=== PATIENT | female | born 2000 | race Caucasian/White ===

== ENCOUNTER 2022-11-24 22:01 | Outpatient (REF) | payer OTHER, SELFPAY ==
[2022-11-30 16:09] LABS: Age Gdln ACOG Testing Note (.); IGP, rfx Aptima HPV ASCU Note (.)
== END 2022-11-24 22:02 | disposition home or self-care (01) ==
LOC: LAB 22:01
PROVIDERS: PCP Obstetrics & Gynecology; Visit Provider Obstetrics & Gynecology
DX: Z12.4 Encounter for screening for malignant neoplasm of cervix (principal)
CPT/HCPCS: G0145

== ENCOUNTER 2023-02-03 12:29 | Outpatient (OUT) | payer OTHER, SELFPAY ==
[2023-02-03 13:03] LABS: Basophils Absolute Auto 0.1 10^3/uL (0.0-0.1); Basophils Percent Auto 0.7 % (0.2-2.0); Eosinophils Absolute Auto 0.1 10^3/uL (0.0-0.7); Eosinophils Percent Auto 1.6 % (0.9-7.0); Hematocrit 39.6 % (36.0-48.0); Hemoglobin 13.6 g/dL (12.0-16.0); Immature Granulocytes Abs Auto 0.01 10^3/uL (0.00-0.03); Immature Granulocytes Pct Auto 0.1 % (0.0-0.5); Lymphocytes Absolute Auto 3.1 10^3/uL (1.2-3.8); Lymphocytes Percent Auto 46.9 % (20.5-60.0); Mean Corpuscular HGB Conc 34.3 g/dL (29.9-35.2); Mean Corpuscular Hemoglobin 30.4 pg (26.7-34.0); Mean Corpuscular Volume 88.6 fL (81.0-99.0); Mean Platelet Volume 11.2 fL (9.5-13.5); Monocytes Absolute Auto 0.9 10^3/uL (0.3-0.8); Monocytes Percent Auto 13.3 % (1.7-12.0); Neutrophils Absolute Auto 2.5 10^3/uL (1.4-6.5); Neutrophils Percent Auto 37.4 % (43.0-75.0); Platelet Count 226 10^3/uL (150-450); Red Blood Count 4.47 10^6/uL (4.20-5.40); Red Cell Distribution Width 11.4 % (11.0-15.0); White Blood Count 6.7 10^3/uL (4.0-11.0)
[2023-02-03 13:51] LABS: Free T4 0.95 ng/dL (0.76-1.46)
[2023-02-03 13:53] LABS: Thyroid Stimulating Hormone 1.811 uIU/mL (0.358-3.740)
[2023-02-04 08:10] LABS: HBsAg Screen Negative (Negative); HCV Antibody Non Reactive (Non Reactive)
[2023-02-04 11:10] LABS: Rapid Plasma Reagin, Quant Non Reactive (NonRea<1:1)
== END 2023-02-03 12:30 | disposition home or self-care (01) ==
LOC: LAB 12:31
PROVIDERS: PCP Obstetrics & Gynecology; Visit Provider Obstetrics & Gynecology
DX: E34.9 Endocrine disorder, unspecified (principal); Z20.2 Contact with and (suspected) exposure to infections with a predominantly sexual mode of transmission
CPT/HCPCS: 36415; 82728; 84439; 84443; 85025; 86592; 86706; 86803

== ENCOUNTER 2024-07-24 12:31 | Outpatient (OUT) | payer BC, SELFPAY ==
[2024-07-25 05:09] LABS: HIV Ab/p24 Ag Screen Non Reactive (Non Reactive)
[2024-07-25 06:10] LABS: HBsAg Screen Negative (Negative)
[2024-07-25 10:07] LABS: Rapid Plasma Reagin, Quant Non Reactive titer (NonRea<1:1)
[2024-07-29 00:07] LABS: HSV-1 DNA Negative (Negative); HSV-2 DNA Positive (Negative)
== END 2024-07-24 12:32 | disposition home or self-care (01) ==
LOC: LAB 12:34
PROVIDERS: PCP Family Medicine; Visit Provider Obstetrics & Gynecology
DX: Z20.2 Contact with and (suspected) exposure to infections with a predominantly sexual mode of transmission (principal)
CPT/HCPCS: 36415; 86592; 87340; 87389

== ENCOUNTER 2024-07-26 09:59 | Outpatient (OUT) | payer BC, SELFPAY ==
--- NOTE | 2024-07-26 10:03 | US_ITS ---
[address] [address] Patient Name: BALATZAR HUTCHINSON MRN: [id number] date: 2000 Sex: F Assigned Patient Location: US Current Patient Location: US Accession/Order Number: [id number] Exam Date: 07/26/2024 10:05 Report Date: 07/26/2024 14:02 At the request of: LOAN CARMONA Procedure: US pelvis transvaginal EXAMINATION: US pelvis transvaginal HISTORY: Cervicitis and Endocervicitis COMPARISON: No relevant comparison available. TECHNIQUE: Transabdominal and/or transvaginal sonographic examination was performed as indicated by examination type. FINDINGS: UTERUS: Normal size and appearance. Uterus size: 7.9 x 5.9 x 4.8 cm ENDOMETRIUM: Normal homogeneous appearance. Endometrial thickness: 7 mm RIGHT OVARY: Contains a 1.9 cm complex cyst without hypervascularity; likely a collapsing follicle. Duplex Doppler demonstrates normal waveform and flow; resistive index 0.5. Ovary size: 3.9 x 2.8 x 3.2 cm LEFT OVARY: Contains multiple small peripherally located follicles; nonspecific but can be seen with polycystic ovarian syndrome. Duplex Doppler demonstrates normal waveform and flow; resistive index 0.6. Ovary size: 3.6 x 1.8 x 1.6 cm CUL-DE-SAC: Trace amount of free fluid. BLADDER: Unremarkable. OTHER: None. US/US pelvis transvaginal IMPRESSION: 1. Complex cyst within right ovary most suggestive of a collapsing follicle. 2. No appreciable acute findings of the uterus or ovaries. No findings to suggest tubo-ovarian abscess. Electronically authenticated by: JIMMY BRYAN Date: 07/26/2024 14:02
--- OUTSIDE RECORDS SUMMARY | 2024-07-26 10:03 | XMS_ITS | CCD ---
Author Organization [facility] Care Team Providers Care Cane Flume Watchman Name Role Phone Rima Wharton Unavailable Selene Escalante Unavailable JESSE Escalante Attending Provider [phone] Selene Escalante Attending Unavailable Selene Escalante Admitting Unavailable OLIVIER ., DR CATES Attending Unavailable OLIVIER ., DR CATES Admitting Unavailable MISC, DR COSTELLO Primary Care Unavailable OLIVIER ., DR CATES Admitting Unavailable OLIVIER ., DR CATES Attending Unavailable OLIVIER ., DR CATES Consulting Unavailable MISC, DR COSTELLO Primary Care Unavailable NICK II, BOOM Consulting Unavailable KOISAAC COVINGTON Consulting Unavailable OLIVIER ., DR CATES Attending Unavailable OLIVIER ., DR CATES Consulting Unavailable OLIVIER ., DR CATES Admitting Unavailable MISC, DR COSTELLO Primary Care Unavailable Harini CHAUDHRY, Patrick Layton Primary Care Provider Medications Current Medications Medication Drug Class(es) Dates Sig (Normalized) Sig (Original) amoxicillin 875 mg / clavulanate 125 mg oral tablet (1 source) Penicillin-class Antibacterial Start: 4 take 1 tablet by mouth twice daily Amoxicillin-Pot Clavulanate Active 1 TAB PO Twice daily 20 September 28, 2023 12:00am azithromycin 500 mg oral tablet (2 sources) Macrolide Antimicrobial Start: 5 End: 5 take 2 tablets by mouth once azithromycin (Zithromax) 500 MG tablet Indications: Vaginal discharge , STD exposure Take 2 tablets (1,000 mg) by mouth 1 time for 1 dose 2 tablet 07/24/2024 07/24/2024 Active Citalopram (3 sources) Serotonin Reuptake Inhibitor CeleXA Active doxycycline hyclate 100 mg oral capsule (4 sources) Tetracycline-class Drug Start: 5 End: 5 doxycycline (Vibramycin) 100 MG capsule Indications: Cervicitis and endocervicitis Take 1 capsule (100 mg) by mouth in the morning and 1 capsule (100 mg) before bedtime. Do all this for 14 days. Take with at least 8 ounces (large glass) of water, do not lie down for 30 minutes after. 28 capsule 07/24/2024 08/07/2024 Active methylPREDNISolone 4 mg oral tablet (3 sources) Corticosteroid Start: 2 Medrol 4 MG as directed Orally as directed for 6 days Mar, Active nitrofurantoin, macrocrystals 25 mg / nitrofurantoin, monohydrate 75 mg oral capsule (3 sources) Nitrofuran Antibacterial Start: 2 take 1 capsule by mouth every twelve hours Macrobid 100 MG 1 cap(s) Orally 2 times a day for 5 day(s) Mar, Active Completed/Discontinued Medications Medication Drug Class(es) Dates Sig (Normalized) Sig (Original) Triamcinolone (3 sources) Corticosteroid Start: 11-08-2017 KENALOG - 10 m g October, 80 mg Problems Active Problems Problem Classification Problem Date Documented Date Episodic/Chronic Abdominal pain (1 source) Pelvic and perineal pain; Translations: [PELVIC AND PERINEAL PAIN] Onset: 08-10-2022 Episodic Contraceptive and procreative management (5 sources) Encounter for sterilization; Translations: [ENCOUNTER FOR STERILIZATION] Onset: 07-28-2022 Episodic Genitourinary symptoms and ill-defined conditions (7 sources) Dysuria; Translations: [Dysuria] Onset: 03-15-2022 Episodic Immunizations and screening for infectious disease (12 sources) Contact with and (suspected) exposure to other viral communicable diseases; Translations: [Encounter for screening for human papillomavirus (HPV)] Onset: 06-07-2021 Resolved: 06-07-2021 Episodic Inflammatory diseases of female pelvic organs (2 sources) Cervicitis and endocervicitis; Translations: [Inflammatory disease of cervix uteri] 07-24-2024 Episodic Other female genital disorders (2 sources) Pain in female genitalia on intercourse; Translations: [Unspecified dyspareunia] 07-24-2024 Chronic Other female genital disorders (2 sources) Vaginal discharge; Translations: [Other specified noninflammatory disorders of vagina] 07-24-2024 Episodic Other upper respiratory disease (4 sources) Seasonal allergy; Translations: [Other seasonal allergic rhinitis] Chronic Ovarian cyst (1 source) Unspecified ovarian cyst, right side; Translations: [UNSPECIFIED OVARIAN CYST RIGHT SIDE] Onset: 08-10-2022 Episodic Spondylosis; intervertebral disc disorders; other back problems (2 sources) Neck pain; Translations: [Cervicalgia] 07-24-2024 Episodic Urinary tract infections (3 sources) Urinary tract infection, site not specified Episodic Past or Other Problems Problem Classification Problem Date Documented Da te Episodic/Chronic Other screening for suspected conditions (not mental disorders or infectious disease) (4 sources) Encounter for screening for malignant neoplasm of cervix; Translations: [ENC SCREENING MALIG NEOPLASM CERV] Onset: 04-21-2022 Episodic Viral infection (3 sources) COVID-19 Results Test Name Value Interpretation Reference Range Facility HIV AB/P24 AG WITH REFLEXon 07-25-2024 HIV AB/P24 AG SCREEN Non-Reactive Non Reactive [facility] Comment on above: HIV-1/HIV-2 antibodi es and HIV-1 p24 antigen were NOT detected. There is no laboratory evidence of HIV infection. HIV Negative Performed at: [facility] [address] [id number] [employer] Worker: Luke Quinn PhD, Phone: [phone] [facility] e RECURRENT VAGINITIS (HTRX)on 07-25-2024 HERPES SIMPLEX VIRUS 1 0 [facility] HERPES SIMPLEX VIRUS 1 Not detected [facility] HERPES SIMPLEX VIRUS 2 21.299 Abnormal [facility] HERPES SIMPLEX VIRUS 2 Detected Abnormal [facility] Interpretation and review of laboratory results Abnormal [facility] Healthca re [facility] CBC AUTO DIFFon 07-29-2022 BASO # 0.0 103/ul Normal 0.0-0.1 [facility] Comment on above: Performed By: #### C BC #### [facility] [address] [address] [address] Nathalie Hartman Basophils/100 WBC (Bld) 0.5 % Normal 0.2-2.0 [facility] Comment on above: Performed By: #### C BC #### [facility] [address] [place] [address] Dr. Nathalie Hartman EO # 0.2 103/ul Normal 0.0-0.7 [facility] Comment on above: Performed By: #### C BC #### [facility] [address] [place] [address] Dr. Nathalie Hartman Eosinophils/100 WBC (Bld) 1.9 % Normal 0.9-7.0 [facility] Comment on above: Performed By: #### C BC #### [facility] [address] [place] [address] Dr. Nathalie Hartman Erythrocyte distribution width (RBC) [Ratio] 11.8 % Normal 11.0-15.0 [facility] Comment on above: Performed By: #### C BC #### [facility] [address] [place] [address] Dr. Nathalie Hartman Hematocrit (Bld) [Volume fraction] 40.1 % Normal 36.0-48.0 [facility] Comment on above: Performed By: #### C BC #### [facility] [address] [place] [address] Dr. Nathalie Hartman Hemoglobin (Bld) [Mass/Vol] 13.3 g/dL Normal 12.0-16.0 [facility] Comment on above: Performed By: #### C BC #### [facility] [address] [place] [address] Dr. Nathalie Hartman IG # 0.03 10e3/ul Normal 0.00-0.03 [facility] Comment on above: Performed By: #### C BC #### [facility] [address] [place] [address] Dr. Nathalie Hartman IG % 0.3 % Normal 0.0-0.5 [facility] Comment on above: Performed By: #### C BC #### [facility] [address] [place] [address] Dr. Nathalie Hartman LYMPH # 2.5 103/ul Normal 1.2-3.8 [facility] Comment on above: Performed By: #### C BC #### [facility] [address] [place] [address] Dr. Nathalie Hartman Lymphocytes/100 WBC (Bld) 29.2 % Normal 20.5-60.0 [facility] Comment on above: Performed By: #### C BC #### [facility] [address] [place] [address] Dr. Nathalie Hartman MANUAL DIFF REQ NO Normal [facility] Comment on above: Performed By: #### C BC #### [facility] [address] [place] [address] Dr. Nathalie Hartman MCH (RBC) [Entitic mass] 29.3 pg Normal 26.7-34.0 [facility] Comment on above: Performed By: #### C BC #### [facility] [address] [place] [address] Dr. Nathalie Hartman MCHC (RBC) [Mass/Vol] 33.2 g/dL Normal 29.9-35.2 [facility] Comment on above: Performed By: #### C BC #### [facility] [address] [place] [address] Dr. Nathalie Hartman MCV (RBC) [Entitic vol] 88.3 fL Normal 81.0-99.0 [facility] Comment on above: Performed By: #### C BC #### [facility] [address] [place] [address] Dr. Nathalie Hartman MONO # 0.6 103/ul Normal 0.3-0.8 [facility] Comment on above: Performed By: #### C BC #### [facility] [address] [place] [address] Dr. Nathalie Hartman Monocytes/100 WBC (Bld) 7.4 % Normal 1.7-12.0 [facility] Comment on above: Performed By: #### C BC #### [facility] [address] [place] [address] Dr. Nathalie Hartman NEUT # 5.2 103/ul Normal 1.4-6.5 [facility] Comment on above: Performed By: #### C BC #### [facility] [address] [place] [address] Dr. Nathalie Hartman Neutrophils/100 WBC (Bld) 60.7 % Normal 43.0-75.0 [facility] Comment on above: Performed By: #### C BC #### [facility] [address] [place] [address] Dr. Nathalie Hartman Platelet mean volume (Bld) [Entitic vol] 10.9 fL Normal 9.5-13.5 [facility] Comment on above: Performed By: #### C BC #### [facility] [address] [place] [address] Dr. Nathalie Hartman PLT 203 103/ul Normal 150-450 [facility] Comment on above: Performed By: #### C BC #### [facility] [address] [place] [address] Dr. Nathalie Hartman RBC 4.54 106/ul Normal 4.20-5.40 [facility] Comment on above: Performed By: #### C BC #### [facility] [address] [place] [address] Dr. Nathaile Hartman WBC 8.6 103/ul Normal 4.0-11.0 [facility] Comment on above: Performed By: #### C BC #### [facility] [address] [place] [address] Dr. Nathalie Hartman PREG QUANT HCGon 07-29-2022 HCG QUANT <1 Normal [facility] Comment on above: Performed By: #### P REGQNT #### [facility] [address] [place] [address] Dr. Nathalie Hartman HCG RANGE SEE BELOW Normal [facility] Comment on above: Result Comment: 5-50 0.2-1 WEEK 50-500 1-2 WEEKS 100-5,000 2-3 WEEKS 500-10,000 3-4 WEEKS 1,000-50,000 4-5 WEEKS 10,000-100,000 5-6 WEEKS 15,000-200,000 6-8 WEEKS 10,000-100,000 2-3 MONTHS Performed By: #### P REGQNT #### [facility] [address] [place] [address] Dr. Nathalie Hartman PAP ACOG PANEL 2: 21 to 29on 05-03-2022 . . Normal [facility] Comment on above: Performed By: #### [id number] #### [facility] [address] [place] [address] Dr. Nathalie Hartman Age Gdln ACOG Testing 21-29 Normal [facility] Comment on above: Performed By: #### [id number] #### [facility] [address] [place] [address] Dr. Nathalie Hartman DIAGNOSIS: Comment Abnormal [facility] Comment on above: Result Comment: EPIT HELIAL CELL ABNORMALITY. ATYPICAL SQUAMOUS CELLS OF UNDETERMINED SIGNIFICANCE (ASC-US). Performed By: #### [id number] #### [facility] [address] [place] [address] Dr. Nathalie Hartman Electronically signed by: Comment Normal [facility] Comment on above: Result Comment: Damion Justice MD, Pathologist Performed By: #### [id number] #### [facility] [address] [place] [address] Dr. Nathalie Hartman HPV Aptima Positive Abnormal Negative [facility] Comment on above: Result Comment: This nucleic acid amplification test detects fourteen high-risk HPV types (16,18,31,33,35,39,45,51,52,56,58,59,66,68) without differentiation. Performed By: #### 4 [id number] #### [facility] [address] [place] [address] Dr. Nathalie Hartman Methodology: Comment Normal [facility] Comment on above: Result Comment: This liquid based ThinPrep(R) pap test was screened with the use of an image guided system. Performed By: #### [id number] #### [facility] [address] [place] [address] Dr. Nathalie Hartman Note: Comment Normal [facility] Comment on above: Result Comment: The Pap smear is a screening test designed to aid in the detection of premalignant and malignant conditions of the uterine cervix. It is not a diagnostic procedure and should not be used as the sole means of detecting cervical cancer. Both false-positive and false-negative reports do occur. . Performed By: #### [id number] #### [facility] [address] [address] [address] Nathalie Hartman Pathologist Provided ICD10 Comment Normal [facility] Comment on above: Result Comment: [id number] Performed By: #### [id number] #### [facility] [address] [address] [address] Nathalie Hartman Performed by: Comment Normal [facility] Comment on above: Result Comment: Dinorah Carrera, [employer] Research Technician Performed By: #### [id number] #### [facility] [address] [address] [address] Nathalie Hartman Reflex Criteria: Comment Normal [facility] Comment on above: Result Comment: See below for HPV testing results. . Performed By: #### [id number] #### [facility] [address] [address] [address] Nathalie Hartman Specimen adequacy: Comment Normal [facility] Comment on above: Result Comment: Sati sfactory for evaluation. Endocervical and/or squamous metaplastic cells (endocervical component) are present. Performed By: #### [id number] #### [facility] [address] [address] [address] Nathalie Hartman COVID Quick Testingon 2021 Result Positive [facility] Other Urinalysis - AUTOMATEDon Appearance (U) cloudy Make YES! Happen Other Bilirubin Ql (U) Negative [employer] Other Color (U) dark yellow [facility] Other Glucose Ql (U) Negative Make YES! Happen Other Hemoglobin Ql (U) Negative Xochitl (So-Shee) [employer] Other Ketones Ql (U) Negative Make YES! Happen Other Leukocyte esterase Test strip Ql (U) small [facility] Other Nitrite Ql (U) Negative Make YES! Happen Other pH (U) 6.0 [pH] [facility] Other Protein Ql (U) 100 Make YES! Happen Other Specific gravity (U) [Rel density] 1.010 [facility] Other Urobilinogen (U) [Mass/Vol] 0.2 mg/dL [facility] Other Urinalysis - AUTOMATED [facility] Other Urine Cultureon 03-15-2022 Bacteria identified Cx Nom (U) Reason for Exam Dysuria Urine No Growth 2 Days PERFORMED BY: [place] [address] PATHOLOGIST PILL MAKER SAFIA [place]ORADO M.D. [facility] Comment on above: Performed By: #### C UU #### [facility] [address] [place] [address] Bacteria identified Cx Nom (U) [facility] Other COVID Quick Testingon 2020 Result Negative [facility] Other Vital Signs Date Time Vital Sign Value Performing Clinician Facility 07-24-2024 11:29-0500 Body mass index (BMI) [Ratio] 21.04 kg/m2 Loan Olivier DO Work Phone: [facility] 07-24-2024 11:29-0500 Body weight 58.24 kg Loan Olivier DO Work Phone: [facility] 07-24-2024 11:29-0500 Diastolic blood pressure 50 mm[Hg] Loan Olivier DO Work Phone: [facility] 07-24-2024 11:29-0500 Systolic blood pressure 92 mm[Hg] Loan Olivier DO Work Phone: [facility] 09-28-2023 16:51-0400 Body height 166.37 cm [facility] 09-28-2023 16:51-0400 Body mass index (BMI) [Ratio] 22.1 kg/m2 [facility] 09-28-2023 16:51-0400 Body temperature 98.3 [degF] [facility] 09-28-2023 16:51-0400 Body weight 61.23 kg [facility] 09-28-2023 16:51-0400 Heart rate 76 /min [facility] 09-28-2023 16:51-0400 Respiratory rate 16 /min [facility] 09-28-2023 16:51-0400 SaO2% (BldA) [Mass fraction] 99 % [facility] 03-15-2022 13:15-0400 Body height 165.1 cm Selene Rochamond Other [facility] [employer] Other 03-15-2022 13:15-0400 Body mass index (BMI) [Ratio] 22.8 kg/m2 Selene Rochamond Other [facility] Other 03-15-2022 13:15-0400 Body temperature 98 [degF] Selene Rochamond Other [facility] Other 03-15-2022 13:15-0400 Body weight 62.14 kg Selene Ava Other [facility] Other 03-15-2022 13:15-0400 Diastolic blood pressure 59 mm[Hg] Selene Rochamond Other [facility] Other 03-15-2022 13:15-0400 Respiratory rate 18 /min Selene Rochamond Other [facility] Other 03-15-2022 13:15-0400 SaO2% (BldA) [Mass fraction] 98 % Selene Ava Other [facility] Other 03-15-2022 13:15-0400 Systolic blood pressure 129 mm[Hg] Selene Escalante Other [facility] Other 06-07-2021 12:30-0500 Body height 165.1 cm Rima Wharton Other [facility] Other 06-07-2021 12:30-0500 SaO2% (BldA) [Mass fraction] 97 % Rima Wharton Other [facility] Other Encounters Encounter Date Encounter Type Care Provider Facility Start: 07-24-2024 End: 07-24-2024 Bamboo flowsheet Loan Olivier DO Work Phone: [facility] Start: 07-24-2024 End: 07-25-2024 Bamboo flowsheet Loan Olivier DO Work Phone: [facility] Start: 07-24-2024 End: 07-25-2024 [facility] Result Encounter Loan Olivier DO Work Phone: [facility] External Department Unsolicited Start: 07-24-2024 End: 07-25-2024 External Result Encounter Loan Olivier DO Work Phone: [facility] External Department Unsolicited Start: 07-24-2024 End: 07-24-2024 Office outpatient visit 15 minutes Loan Olivier DO Work Phone: [facility] Comment on above: Cervicitis and endoc ervicitis; Cervical pain; Dyspareunia in female; Vaginal discharge; STD exposure; Sexually transmitted disease exposure Start: 09-28-2023 End: 09-28-2023 ambulatory [facility] Work Phone: Start: 09-28-2023 End: 09-28-2023 Patient encounter procedure [facility] Work Phone: Start: 07-29-2022 End: 07-29-[address] LONA AGUAYO . Facility:[facility] Start: 07-28-2022 Encounter for other preprocedural examination DR LOAN AGUAYO . [facility] Start: 07-22-2022 End: 07-23-[address] LOAN AGUAYO . Facility:[facility] Start: 07-22-2022 End: 07-23-2022 Encounter for other preprocedural examination DR LOAN AGUAYO . Facility:[facility] Start: 04-21-2022 End: 04-21-[address] LOAN AGUAYO . Facility:[facility] Start: 03-15-2022 Office outpatient vi sit 25 minutes Selene Escalante [facility] Start: 03-15-2022 End: 03-15-2022 ambulatory Selene Escalante [facility] Other Start: 03-15-2022 End: 03-15-2022 Departed [employer] Selene Escalante Work Phone: [facility] [place] Start: 06-07-2021 End: 06-07-2021 ambulatory Rima Ginty Other [facility] Other Start: 06-07-2021 Office outpatient vi sit 15 minutes Rima Ginty [facility] Procedures Date Procedure Procedure Detail Performing Clinician Start: 07-24-2024 RECURRENT VAGINITIS (HTRX) Loan Aguayo DO Work Phone: Start: 07-24-2024 HIV AB/P24 AG WITH REFLEX Generic External Data Provider Plan of Treatment Date Care Activity Detail Author Start: 09-03-2024 End: 09-03-2024 Patient encounter procedure 09/03/2024 11:00 AM EDT Office Visit [facility] [address] [place] [id number] Keira Murphy PA [address] [place] [address] [facility] Start: 08-07-2024 End: 08-07-2024 Patient encounter procedure 08/07/2024 8:00 AM EST Office Visit [facility] [address] [facility] [id number] Loan Aguayo, DO [address] [place] [address] [facility] Start: 07-24-2024 End: 07-24-2025 US Pelvis US Pelvis w/ TV Imaging Routine Cervicitis and endocervicitis Cervical pain Dyspareunia in female Vaginal discharge STD exposure Expected: 07/24/2024, Expires: 07/24/2025 [facility] Comment on above: Expected: 07/24/2024 , Expires: 07/24/2025 Start: 07-24-2024 End: 07-24-2024 Patient encounter procedure 07/24/2024 11:20 AM EST Office Visit [facility] [address] [facility] [id number] Loan Aguayo, DO [address] [place] [address] [place] [address] Arrived [facility] Comment on above: Arrived Start: 02-11-2024 Influenza vaccination Influenza Vacc ine (#1) [facility] Bacteria identified in Urine by Culture [facility] CHLAMYDIA TRACHOMATI S (GENITO/STI) CHLAMYDIA TRACHOMATIS (GENITO/STI) Lab Routine Cervicitis and endocervicitis Cervical pain Vaginal discharge STD exposure Ordered: 07/24/2024 [facility] Comment on above: Ordered: 07/24/2024 Hepatitis B virus surface Ag [Presence] in Serum or Plasma by Immunoassay Hepatitis B surface antigen Lab Routine Sexually transmitted disease exposure Ordered: 07/24/2024 [facility] Comment on above: Ordered: 07/24/2024 HIV-1/HIV-2 antigen/antibody combination immunoassay HIV-1 and HIV-2 antibodies Lab Routine Sexually transmitted disease exposure Ordered: 07/24/2024 [facility] Comment on above: Ordered: 07/24/2024 HSV nonspecific, IgG HSV nonspec ific, IgG Lab Routine STD exposure Ordered: 07/24/2024 [facility] Comment on above: Ordered: 07/24/2024 HSV nonspecific, IgM HSV nonspec ific, IgM Lab Routine STD exposure Ordered: 07/24/2024 [facility] Comment on above: Ordered: 07/24/2024 HSV viral culture HSV viral cult ure Microbiology Routine STD exposure Sexually transmitted disease exposure Ordered: 07/24/2024 [facility] Comment on above: Ordered: 07/24/2024 Neisseria gonorrhoea e DNA [Presence] in Unspecified specimen by JUSTIN with probe detection Neisseria gonorrhea DNA probe, direct Lab Routine Cervicitis and endocervicitis Cervical pain Vaginal discharge STD exposure Ordered: 07/24/2024 [facility] Comment on above: Ordered: 07/24/2024 Reagin Ab [Presence] in Serum by [facility] Lab Routine Sexually transmitted disease exposure Ordered: 07/24/2024 [facility] Comment on above: Ordered: 07/24/2024 SURESWAB(R) ADVANCED VAGINITIS PLUS, TMA SURESWAB(R) ADVANCED VAGINITIS PLUS, TMA Pathology and Cytology Routine Cervicitis and endocervicitis Cervical pain Vaginal discharge STD exposure Ordered: 07/24/2024 [facility] Work Phone: Comment on above: Ordered: 07/24/2024 Payers Date Payer Category Payer [facility] er [id number] 2022 Self-pay [id number] 2000 Unknown [id number] 2000 Unknown [id number] 2000 Unknown [id number] 1959 Unknown [id number] Private Health Insurance [employer] [id number] Unknown Francisco J ALBERTO/LEILA [id number] Unknown [id number] Social History Date Type Detail Facility Unknown if ever smoked [facility] [employer] Other Start: 12-28-2022 Sex Assigned At N [facility] [employer] Other Start: 2000 Sex Assigned At Female F [facility] Start: 09-28-2023 Tobacco smoking stat [facility] Unknown if ever smoked [facility] Start: 11-23-2022 Tobacco smoking stat [facility] Never smoked tobacco [facility] Start: 11-23-2022 Tobacco use and exposure Smokeless tobacco non-user [facility] Start: 12-29-2022 Alcoholic beverage intake Lifetime non-drinker (finding) [facility] Start: 12-28-2022 History of Social function [facility] Start: 11-17-2022 Gender identity Identifies as female gender (finding) [facility] History of Present illness Narrative 07-24-2024 Catina Mireles LPN - 07/24/2024 11:20 AM EST Note Date & Type Note Facility 07-24-2024 History of Presen t illness Narrative Reason for Appointment: Patient ID: Jaziel Hutchinson is a 24 y.o. female who presents for Cervical Irritation Patient presents today for Acute Visit. and STD Check. MEDICATIONS Current Outpatient Medications Medication Instructions doxycycline (VIBRAMYCIN) 100 mg, Oral, 2 times daily, Take with at least 8 ounces (large glass) of water, do not lie down for 30 minutes after ALLERGIES No Known Allergies PROBLEMS Active Ambulatory Problems Diagnosis Date Noted No Active Ambulatory Problems Resolved Ambulatory Problems Diagnosis Date Noted No Resolved Ambulatory Problems Past Medical History: Diagnosis Date ASCUS of cervix with negative high risk HPV 04/20/2022 History of diagnostic ultrasound 03/29/2019 Mood changes Normal colposcopy 05/26/2022 Seasonal allergies Vaginal delivery HISTORY PAST MEDICAL HISTORY SOCIAL HISTORY Past Medical History: Diagnosis Date ASCUS of cervix with negative high risk HPV 04/20/2022 History of diagnostic ultrasound 03/29/2019 Pelvic U/S negative Mood changes Normal colposcopy 05/26/2022 due to ascus hpv + Seasonal allergies Vaginal delivery Social History Tobacco Use Smoking status: Never Smokeless tobacco: Never Substance Use Topics Alcohol use: Never Drug use: Never FAMILY HISTORY Family History Problem Relation Name Age of Onset Cancer Paternal Grandmother Melanoma Neg Hx SURGICAL HISTORY Past Surgical History: Procedure Laterality Date OTHER SURGICAL HISTORY 07/29/2022 robotic salpingectomy w/right cystoectomy REVIEW OF SYSTEMS Review of Systems: Review of Systems Constitutional: Negative. HENT: Negative. Eyes: Negative. Respiratory: Negative. Cardiovascular: Negative. Gastrointestinal: Negative. Genitourinary: Positive for dyspareunia, genital sores and vaginal discharge. Musculoskeletal: Negative. Skin: Negative. Neurological: Negative. All other systems reviewed and are negative. Hematological: Negative. Endocrine: Negative. Allergic/Immunologic: Negative. OBJECTIVE Objective: Physical Exam Constitutional: Appearance: Normal appearance. She is well-developed. Genitourinary: Vulva normal. Cardiovascular: Rate and Rhythm: Normal rate and regular rhythm. Pulmonary: Effort: Pulmonary effort is normal. Breath sounds: Normal breath sounds. Abdominal: General: Bowel sounds are normal. There is no distension. Palpations: Abdomen is soft. Tenderness: There is no abdominal tenderness. There is no guarding or rebound. Musculoskeletal: General: No swelling. Normal range of motion. Right lower leg: No edema. Left lower leg: No edema. Neurological: Mental Status: She is alert and oriented to person, place, and time. Skin: General: Skin is warm and dry. Psychiatric: Mood and Affect: Mood normal. Behavior: Behavior normal. Vitals and nursing note reviewed. Exam conducted with a fiber glass worker present. Vitals: Estimated body mass index is 21.04 kg/m as calculated from the following: Height as of 12/29/22: 5' 5.5 . Weight as of this encounter: 128 lb 6.4 oz. BP: 92/50 Patient's last menstrual period was 06/27/2024 (exact date). ASSESSMENT & PLAN ICD-10-CM 1. Cervicitis and endocervicitis N72 doxycycline (Vibramycin) 100 MG capsule 2. Cervical pain M54.2 3. Dyspareunia in female N94.10 4. Vaginal discharge N89.8 5. STD exposure Z20.2 Pt presents with cervical pain, vaginal discharge, painful intercourse, and cervicitis. Pelvic exam performed, vaginal discharge noted. Ordered ultrasound for pt d/t painful intercourse and cervical pain. Rx for doxy and azithromycin faxed to pharmacy. Pt has small ulcerative spot on labia cultured for HSV- given std plus hsv lab work to have obtained. Pt voiced understanding. Discussed mycoplasma regimen for future, also discussed scope for future if pain persists. Pt voiced understanding. Pt to have telehealth in 2 weeks. Documented by Catina Mireles LPN on behalf of: Loan Aguayo DO documented in this encounter [facility] Clinical Note 07-29-2022 Note Date & Type Note Facility 07-29-2022 Note OPERATIVE NOTE OPERATION DATE: 07/29/2022 PROCEDURE: Robotic assisted laparoscopic bilateral salpingectomy with right ovarian cystectomy. PREOPERATIVE DIAGNOSIS: Desires permanent sterilization, pelvic pain. POSTOPERATIVE DIAGNOSIS: Desires permanent sterilization, pelvic pain. ANESTHESIA: General. SURGEON: Loan Aguayo D.O. ADAPTIVE PHYSICAL EDUCATION SPECIALIST: SHAYY Love URINE OUTPUT: Yellow and clear. BLOOD LOSS: 5 mL. FINDINGS: Normal appearing uterus and tubes, along with normal appearing left ovary, right ovarian cyst approximately 4-5 cm in size. SPECIMEN: Bilateral tubes, right ovarian cyst wall. PROCEDURE: The patient was taken back to the OR where she was prepped and draped in the normal sterile fashion after being placed in the dorsal lithotomy position, after being placed under general anesthesia without difficulty. A wet sponge stick was placed into the patient's vagina. Attention was then turned to the patient's abdomen, where a scalpel was used to make a small infraumbilical incision. The S retractors were then used to dissect the underlying layers until the fascia could be seen. The fascia was then grasped with Cosme clamps and tented up. A knife was then used to make a small incision to the fascia. The muscle was identified, at that time two sutures of #0 Vicryl on a GI needle was then used and placed through the fascia. The peritoneum was then identified and entered bluntly. The 10-4 Iain was then placed into the patient's abdomen. This was confirmed with direct visualization of the bowel, using the laparoscope. The patient's abdomen was then insufflated using approximately 4 liters of CO2 gas. Survey of the patient's abdomen demonstrated normal appearing ovaries, uterus and tubes. A second and third lateral port, which was 7-8 in size and 5 mm in size, was then placed laterally after incision was made in the skin under direct visualization. The patient's tube on the patient's right side was identified. The tube was then tented up using a grasper. The LigaSure was used to transect and coagulate the mesosalpinx from the fimbriated end to the insertion at the uterus; the tube was amputated and removed in its entirety. Excellent hemostasis was noted. This was performed on the contralateral side as well. The lateral ports were then removed under direct visualization with excellent hemostasis. The abdomen was desufflated. All instruments were removed from the patient's abdomen. The fascia was closed using the #0 Vicryl on GI needle. The skin was closed using 4-0 Vicryl subcuticularly. All instruments were removed from the patient's vagina as well. The patient was taken out of the dorsal lithotomy position and placed in the supine position and taken to recovery in stable condition. Sponge, lap and needle counts were correct x2 [facility] Evaluation note 03-15-2022 Note Date & Type Note Facility 03-15-2022 Evaluation note Encounter Date Diagnosis Assessment Notes Mar, Contact with and (suspected) exposure to other viral communicable diseases (ICD-10 - Z20.828) Mar, COVID-19 (ICD-10 - U07.1) Discharge Instructions for COVID-19 (Suspected or Confirmed ) material was printed Drink plenty fluids, get plenty of rest. Take the Macrobid and Medrol Dosepak as prescribed until gone. Follow-up with your family physician if no improvement in 2 to 3 days. You must quarantine for 5 days after the onset of your symptoms of COVID. Take Tylenol as needed for pain. Mar, Dysuria (ICD-10 - R30.0) Mar, Urinary tract infection without hematuria, site unspecified (ICD-10 - N39.0) [employer] Other Evaluation note 06-07-2021 Note Date & Type Note Facility 06-07-2021 Evaluation note Encounter Date Diagnosis Assessment Notes May, Contact with and (suspected) exposure to other viral communicable diseases (ICD-10 - Z20.828) Advised patient that COVID antigen rapid test today in office was negative. Due to close contact with COVID+ person, I am highly suspicious and offered PCR test. After discussion with patient PCR order placed and patient was provided with copy of order and instructions on how to schedule. Advised that I will call them with results within 2-5 days. Note provided to patient to stay at home until PCR results, explained that depending on PCR quarantine timing may change. Discussed supportive care of viral infections, including, increase fluids and rest, cool mist humidification, throat lozenges. Patient to follow-up with PCP for persistent or worsening sx despite tx. Immediate eval by ER for warning s/sx as discussed, including but not limited to, SOB, difficulty breathing, chest pain, palpitations, fever >103 or fevers that are not reduced with antipyretic, significant dehydration (unable to keep fluids or food down, persistent vomiting/diarrh ea), abdominal pain, lethargy, severe headache. Patient was provided with education hand sheet. Patient verbalizes understanding and is agreeable to treatment plan May, Other Additional time spent conducting pre-visit phone call, screening for symptoms, instructions on social distancing, application and removal of PPE, and cleaning of examination room, equipment and supplies was preformed. Patient education given for testing methodology and results. Patient care instructions given in writting by [facility] At Home document [employer] Other Evaluation note Note Date & Type Note Facility Evaluation note No assessment information [facility] Work Phone: Evaluation note Note Date & Type Note Facility Evaluation note Diagnosis Cervicitis and endocervicitis Cervical pain Cervicalgia Dyspareunia in female Vaginal discharge Leukorrhea, not specified as infective STD exposure Sexually transmitted disease exposure Contact with or exposure to venereal diseases documented in this encounter [facility] Chief Complaint and Reason for Visit Chief Complaint Dysuria Chief Complaint congestion, cough Advance Directives Advance Directive Response Recorded Date/ Time Advance Directives No February 1:06pm Summary Purpose Family History Relationship Condition Age at Onset Recorded Date/T mitzy Not Specified Unknown Additional Source Comments REASON FOR VISIT (unrecogniz ed section and content) Reason Comments Cervical Irritation Care Teams (unrecognized sec tion and content) Team Status: Inactive Member Role Status Dates Selene Escalante NP-C Attending Provider Active Team Status: Active Member Role Status Dates Patrick Schuler MD Primary Care Provider Active Team Status: Inactive Member Role Status Dates Patrick Schuler MD Primary Care Provider Active S tart: September 28, 2023 End: September 28, 2023 Rima Kline APRN Attending Provider Active Start: September 28, 2023 End: September 28, 2023 Cane Flume Watchman Relationship Specialty Start Date End Date Patrick Schuler MD [address] [address] PCP - General Family Medicine 11/24/22 [employer]ume Watchman Relationship Specialty Start Date End Date Patrick Schuler MD [address] [facility] [address] [place] [address] PCP - General Family Medicine 11/24/22 Cane Flume Watchman Relationship Specialty Start Date End Date Patrick Schuler MD [address] [facility] [address] [place] [address] PCP - General Family Medicine 11/24/22 Goals (unrecognized section and content) Goals may be documented in a n alternate section INFORMATION SOURCE (unrecogn ized section and content) DATE CREATED AUTHOR 03/18/2022 [facility] DATE CREATED AUTHOR AUTHOR'Deborah RIOS 10/14/2022 [employer] FOR RECORDS PERTAINING TO PATIENTS WHO ARE OR HAVE BEEN ENROLLED IN A CHEMICAL DEPENDENCY/SUBSTANCEABUSE PROGRAM, SOME INFORMATION MAY BE OMITTED. This clinical summary was aggregated from multiple sources. Caution should be exercised in using it in the provision of clinical care. This summary normalizes information from multiple sources, and as a consequence, information in this document may materially change the coding, format and clinical context of patient data. In addition, data may be omitted in some cases. CLINICAL DECISIONS SHOULD BE BASED ON THE PRIMARY CLINICAL RECORDS. [facility] [employer] provides no warranty or guarantee of the accuracy or completeness of information in this document.
== END 2024-07-26 10:00 | disposition home or self-care (01) ==
LOC: US 09:59
PROVIDERS: PCP Family Medicine; Visit Provider Obstetrics & Gynecology
DX: N72 Inflammatory disease of cervix uteri (principal); M54.2 Cervicalgia; N94.10 Unspecified dyspareunia; N89.8 Other specified noninflammatory disorders of vagina; Z20.2 Contact with and (suspected) exposure to infections with a predominantly sexual mode of transmission; N83.291 Other ovarian cyst, right side
CPT/HCPCS: 76830